=== PATIENT | male | born 1970 | race Caucasian/White ===

== ENCOUNTER 2018-08-27 17:21 | Emergency (ER) | payer OTHER ==
[~2018-08-27] VITALS: Ht 170.2 cm; Wt 83.0 kg
[~2018-08-27 17:21] MED LIST: OMEPRAZOLE40 MG PO
[2018-08-27 17:36] VITALS: Ht 170.2 cm; Wt 83.0 kg
== END 2018-08-27 19:23 | disposition home or self-care (01) ==
LOC: ED 17:21
DX: T15.92XA Foreign body on external eye, part unspecified, left eye, initial encounter (principal); Y92.89 Other specified places as the place of occurrence of the external cause